=== PATIENT | male | born 1995 | race Caucasian/White ===

== ENCOUNTER 2020-07-28 12:05 | Outpatient (CLI) | payer OTHER, SELFPAY ==
--- NOTE | 2020-07-28 | US_ITS ---
WS: [id number] RIGHT UPPER QUADRANT ULTRASOUND HISTORY: ELEVATED LIVER ENZYMES COMPARISON: None available. Liver: 17.0 cm in length. Liver is moderately enlarged with diffuse hepatic steatosis. Mild steatosis . No mass or bile duct dilatation. Gallbladder: Normally distended gallbladder with no stones or wall thickening. CBD: cm Pancreas: Not visualized. Right kidney: 10.0 cm in length. Normal size and echogenicity. No hydronephrosis or mass. Aorta and IVC: Unremarkable abdominal aorta and IVC. No ascites. US/US liver [id number] IMPRESSION: 1. Normal gallbladder. 2. Mild hepatic steatosis and hepatomegaly.
== END 2020-07-28 12:06 | disposition home or self-care (01) ==
LOC: RADOUTREAD 13:26
PROVIDERS: Visit Provider Nurse Practitioner Family
DX: R74.8 Abnormal levels of other serum enzymes (principal); K76.0 Fatty (change of) liver, not elsewhere classified; R16.0 Hepatomegaly, not elsewhere classified
CPT/HCPCS: 76705

== ENCOUNTER 2025-06-04 09:38 | Outpatient (CLI) | payer OTHER, SELFPAY ==
[2025-06-04 12:02] LABS: Ferritin 106 ng/mL (30-400); Thyroid Stimulating Hormone 1.25 uIU/mL (0.27-4.20); Vitamin B12 529 pg/mL (232-1245)
[2025-06-04 12:25] LABS: Free T4 Free Thyroxine 1.34 ng/dL (0.82-1.77)
== END 2025-06-04 09:39 | disposition home or self-care (01) ==
PROVIDERS: PCP Nurse Practitioner; Visit Provider Nurse Practitioner Family
DX: R53.83 Other fatigue (principal); D51.1 Vitamin B12 deficiency anemia due to selective vitamin B12 malabsorption with proteinuria; L65.9 Nonscarring hair loss, unspecified
CPT/HCPCS: 82306; 82607; 82728; 82746; 84439; 84443; 84630; 85025; 86038